=== PATIENT | male | born 1965 | race Caucasian/White ===

== ENCOUNTER → 2018-12-14 | Outpatient (CLI) | payer OTHER | END | disposition home or self-care (01) | LOC: LAB EV 17:31 → LAB SHORT 17:31 | DX: R33.9 Retention of urine, unspecified (principal) | CPT/HCPCS: 87086 ==

== ENCOUNTER 2019-01-01 13:24 | Observation (INO) | payer OTHER ==
[~2019-01-01] VITALS: Ht 170.2 cm; Wt 137.4 kg
[2019-01-01 15:16] LABS: BASOPHILS ABSOLUTE AUTO 0.05 K/mm3 (0.00-0.23); BASOPHILS PERCENT AUTO 1 % (0-2); EOSINOPHILS ABSOLUTE AUTO 0.27 K/mm3 (0.00-0.68); EOSINOPHILS PERCENT AUTO 4 % (0-6); Hematocrit 45.5 % (37.0-53.0); Hemoglobin 14.9 g/dL (13.5-17.5); IMMATURE GRAN ABSOLUTE AUTO 0.01 K/mm3 (0.00-0.10); IMMATURE GRAN PERCENT AUTO 0 % (0-1); LYMPHOCYTES ABSOLUTE AUTO 2.21 K/mm3 (0.84-5.20); LYMPHOCYTES PERCENT AUTO 29 % (21-46); MONOCYTES ABSOLUTE AUTO 0.61 K/mm3 (0.16-1.47); MONOCYTES PERCENT AUTO 8 % (4-13); Mean Corpuscular HGB 29.5 pg (26.0-34.0); Mean Corpuscular HGB Conc 32.7 g/dL (31.5-36.5); Mean Platelet Volume 11.4 fL (9.1-12.4); NEUTROPHILS ABSOLUTE AUTO 4.42 K/mm3 (1.96-9.15); NEUTROPHILS PERCENT AUTO 58 % (41-73); Platelet Count 172 K/mm3 (150-400); RDW Coefficient Variation 13.1 % (11.7-14.2); RDW Standard Deviation 43.3 fL (35.1-46.3); Red Blood Cell Count 5.05 M/mm3 (4.30-5.90); White Blood Cell Count 7.57 K/mm3 (4.00-11.30)
[2019-01-01 15:24] LABS: Mean Corpuscular Volume 90 fL (80-100)
[2019-01-01 15:45] LABS: Alanine Aminotransfer (ALT/SGP 43 U/L (12-78); Albumin, Blood 3.7 g/dL (3.4-5.0); Albumin/Globulin Ratio 1.1 (0.8-1.8); Alk Phos 77 U/L (50-136); Anion Gap 5 mmol/L (6-16); Aspartate Aminotrans (AST/SGOT 29 U/L (12-37); Blood Urea Nitrogen 6 mg/dL (8-24); Bun/Creatinine Ratio 6.8 (12.0-20.0); CO2, Blood 30 mmol/L (21-32); Calcium, Blood 8.6 mg/dL (8.5-10.1); Chloride, Blood 108 mmol/L (98-108); Creatinine, Blood 0.88 mg/dL (0.60-1.20); Globulin, Blood 3.5 g/dL (2.2-4.0); Glomerular Filtration Rate >60 (60-); Glucose, Blood 97 mg/dL (70-99); Potassium, Blood 3.4 mmol/L (3.5-5.5); Sodium, Blood 143 mmol/L (136-145); Total Protein, Blood 7.2 g/dL (6.4-8.2); Troponin I <0.015 ng/mL (0.000-0.040)
[2019-01-01] MEDS ORDERED: HYDPAM50 PO (17:06)
[2019-01-01] MEDS ORDERED: SERT50 PO (17:08)
[2019-01-01] MEDS ORDERED: FISH OIL 1,0001 EAC1 PO (19:51)
[2019-01-02 04:14] LABS: Hematocrit 43.2 % (37.0-53.0); Hemoglobin 14.1 g/dL (13.5-17.5); Mean Corpuscular HGB 29.7 pg (26.0-34.0); Mean Corpuscular HGB Conc 32.6 g/dL (31.5-36.5); Mean Corpuscular Volume 91 fL (80-100); Mean Platelet Volume 11.3 fL (9.1-12.4); Platelet Count 149 K/mm3 (150-400); RDW Standard Deviation 43.4 fL (35.1-46.3); Red Blood Cell Count 4.75 M/mm3 (4.30-5.90); White Blood Cell Count 6.33 K/mm3 (4.00-11.30)
[2019-01-02 04:35] LABS: Anion Gap 7 mmol/L (6-16); Blood Urea Nitrogen 8 mg/dL (8-24); Bun/Creatinine Ratio 9.1 (12.0-20.0); CO2, Blood 27 mmol/L (21-32); Calcium, Blood 8.4 mg/dL (8.5-10.1); Chloride, Blood 110 mmol/L (98-108); Creatinine, Blood 0.88 mg/dL (0.60-1.20); Glomerular Filtration Rate >60 (60-); Glucose, Blood 95 mg/dL (70-99); Potassium, Blood 3.8 mmol/L (3.5-5.5); Sodium, Blood 144 mmol/L (136-145); Troponin I <0.015 ng/mL (0.000-0.040)
--- NOTE | 2019-01-02 07:53 | NUR ---
SHIFT SUMMARY PT ALERT AND ORIENTED X 3 THROUGHOUT SHIFT. HE SLEPT WELL AND DENIED ANY COMPLAINTS OF PAIN OR DISCOMFORT SHIFT PROGRESSED. PT WOKE EASILY FOR VITALS AND ASSESSMENTS. HE HAS REMAINED IN AFIB, BUT AT A LOWER RATE. HE STILL GETS TO 130'S TO 140'S WITH AMBULATION. PT IS ABLE TO EFFECTIVELY COMMUNICATE WITH STAFF AND DENIED ANY UNMET NEEDS. HIS BLOOD PRESSURE WAS ELEVATED LAST NIGHT AND HAS BEEN STARTED ON NEW MEDICATION TO AID THIS. PT STATED THAT HE HAS NO PREVIOUS HISTORY OF AFIB AND DOES NOT TAKE ANY MEDICATION AT HOME CURRENTLY. HE HAS A STEADY AND WELL BALANCED GAIT. PT WILL CONTINUE TO BE MONITORED UNTIL HANDOFF TO DAYSHIFT RN
--- NOTE | 2019-01-02 07:54 | NUR ---
Assumed Care: Assumed care of pt at approx 0700. VSS. In no apparent sign of distress. Pt is A&Ox4. Calls appropriately. Repositions self. Independent in room, and requests assistance appropriately. Denies any pain. C/o more recent hx of numbness to BLE when pt noticed increased swelling to BLE. Pt also reports intermittent flow of urine when he is attempting to urinate, but denies any pain with urination. Urine appears to be of normal color and does not have a foul odor. Pt reports feeling of flutter feeling in chest for short periods of time this admission and in the past, but that this feeling goes away quickly and that the pt has not experienced any CP. See shift assessment for detailed assessment. Currently resting in bed with call light within reach. Denies any further questions, complaints or requests at this time. Will continue to monitor.
--- NOTE | 2019-01-02 16:31 | NUR ---
Shift Summary No acute changes since initial shift assessment. VSS. In no apparent sign of distress. Pt is A&Ox4. Calls appropriately. Repositions self. Denies any pain. Denies any CP. HR improved to 90's-110's after 12.5mg dose of oral metoprolol this AM. No other acute complaints or events t/o the shift noted or reported by pt. Pt has remained on RA t/o the shift and has been independent in the room. Pt currently resting in bed with call light within reach. Denies any further questions, complaints or requests at this time. Will continue to monitor until report is given to juan m SIMPSON.
--- NOTE | 2019-01-03 06:30 | NUR ---
SHIFT SUMMARY PATIENT ALERT AND ORIENTED X 3 THROUGHOUT SHIFT. HE WAS PLEASANT AND COOPERATIVE WITH VITALS AND ASSESSMENTS. PT DENIED ANY UNMET NEEDS OR COMLAINTS OF PAIN OR DISCOMFORT. HE STATED THAT HE STILL HAD THE OCCASIONAL FLUTTERING FEELING IN HIS CHEST, BUT THAT IT WAS BETTER. HE SLEPT WELL DURING THE NIGHT, REMAINING INDPENDENT IN THE ROOM. PT WAS ABLETO COMMUNICATE NEEDS EFFECTIVELY WITH STAFF. HE USED HIS CALL LIGHT APPROPRIAELY AND IT WAS LEFT WTIHIN EASY REACH. HEART RATE AND BLOOD PRESSURE IMPROVED DURING THE NIGHT, THOUGH HE REMAINED IN AFIB. PT HAS HIS BED IN THE LOWEST POSITION WITH 2X SIDE RAILS IN PLACE. HE HAS NON SLIP SOCKS ON FOR SAFETY. PT WILL CONTINUE TO BE MONITORED UNTIL HANDOFF TO DAYSHIFT RN.
--- NOTE | 2019-01-03 09:08 | NUR ---
Assumed Care: Assumed care of pt at approx 0700. VSS - HTN and tacycardic - Dr. Ledesma at bedside and plan is to increase PO dose of metoprolol to 50mg BID. Pt denies any CP or pressure. Plan is to increase PO dose of metoprolol and if HR improves to appropriate rate, will ambulate pt today in halls to test activity tolerance w/regards to HR. See shift assessment for detailed assessment. Pt independent in room and pt has already been up in room this AM. Currently resting in bed with call light within reach. States that the n/t to his BLE improved as the swelling has decreased in his legs. Reports that his urinary status has returned to normal this AM as well. Denies any further questions, complaints or requests at this time. Will continue to eleonora.
--- NOTE | 2019-01-03 15:54 | NUR ---
Shift Summary No acute changes since initial shift assessment. VSS. In no apparent sign of distress. Pt has remained A&Ox4. This afternoon, pt ambulated in halls with prior resting HR in the 90's-low 100's and increased HR with activity of 150's. Pt c/o pressure or flutter feeling in chest with ambulation. Once back in bed, HR returned to the 90's-low 100's within [address] Ledesma at bedside post ambulation and plan is to start pt on oral/scheduled cardizem tonight and monitor overnight and likely DC tomorrow if HR remaines stable with activity. Pt has remained on RA. Denies any SOB at rest and mild SOB with activity. No other acute events on tele. Pt currently resting in bed with call light within reach. Denies any further questions, complaints or requests at this time. Will continue to montior until report is given to juan m SIMPSON or until pt transfers to medical floor if bed becomes available.
--- NOTE | 2019-01-03 22:37 | NUR ---
PATIENT TRANSFER ASSUMED CARE OF PT AT APPROXIMATELY 1900 THIS EVENING. PT IS CURRENTLY AOX4 AND AMBULATES INDEPENDENTLY IN THE ROOM. CURRENT HEART RHYTHM IS ATRIAL FIBRILLATION WITH A RATE IN THE 90'S PER MONITOR. ALL OTHER VSS. PT IS VERY PLEASANT AND COOPERATIVE WITH CARE. LUNG SOUNDS CLEAR. PT DENIES DYSPNEA SINCE HEART RATE MORE CONTROLLED. PT REPORTS SOME CONCERN ABOUT DISCHARGE TIME TOMORROW, STATES THAT HE MUST BE OUT EARLY IN THE DAY- ADMITTING PHYSICIAN IS AWARE OF PATIENT CONCERNS. PT EDUCATED ON NEW RATE CONTROL MEDICATIONS AND ANTICOAGULANT THERAPY. REPORT CALLED TO NURSE DEL TO BE TAKING OVER CARE OF PATIENT.
--- NOTE | 2019-01-04 05:06 | NUR ---
SHIFT SUMMARY PT TRANSFERED FROM PCU 14 THIS EVENING. REPORTS FEELING WELL. TELEMETRY ON, READING AFIB IN THE 90'S. RATE CONTROLLED THROUGHOUT THE NIGHT. DENIES DYSPNEA OR CHEST PAIN BUT REPORTS HE HAD SOME CHEST DISCOMFORT PRIOR AFTER NEW CARDIAC MEDICATIONS. PER REPORT PT'S HEART RATE INCREASES W/ AMBULATION, HOWEVER PT SLEPT THROUGH MOST OF THE NIGHT AFTER TRANSFER. PT A.O. INDEPENDENT IN THE ROOM. NO ACUTE CHANGES OVERNIGHT. PLAN TO D/C EARLY THIS AM. WILL CONTINUE TO MONITOR.
[2019-01-04] MEDS ORDERED: DILTIAZEM 24HR240 M1 PO (09:34)
[2019-01-04] MEDS ORDERED: METO50ER PO (09:35)
[2019-01-04] MEDS ORDERED: XARELTO20 MG PO (09:37)
--- NOTE | 2019-01-04 12:20 | NUR ---
REVIEW DC. JOSE J HAS MEDS AT PHARM. JOSE J HAS APPT W/ ON FRIDAY AT 0945. REVIEW MEDS WHAT FOR AND HOW TO TAKE. JOSE J CAN RETRUN TO E.R. IF NEEDED. IN W/C WITH STUDENT TO ADMITTING FOR [facility] TO [facility].
== END 2019-01-04 12:18 | disposition home or self-care (01) ==
LOC: ER 13:24 → MEDS 13:25 → PCU 13:25 → ER 16:26 → PCU 16:26 → MEDS 19:49 → PCU 01-03 15:30 → MEDS 01-03 22:50
PROVIDERS: Internal Medicine; ADMIT Internal Medicine
DX: I48.91 Unspecified atrial fibrillation (principal); N40.0 Benign prostatic hyperplasia without lower urinary tract symptoms; G47.33 Obstructive sleep apnea (adult) (pediatric); E66.01 Morbid (severe) obesity due to excess calories; I10 Essential (primary) hypertension; Z87.891 Personal history of nicotine dependence; Z88.2 Allergy status to sulfonamides; Z88.1 Allergy status to other antibiotic agents; Z88.8 Allergy status to other drugs, medicaments and biological substances; Z68.42 Body mass index [BMI] 45.0-49.9, adult
CPT/HCPCS: 36415; 71046; 80048; 80053; 83880; 84484; 85025; 85027; 93005; 93010; 93306; 96365; 99285-25; G0378; J7030

== ENCOUNTER → 2019-01-01 | Outpatient (CLI) | payer OTHER ==
[~2019-01-01] MED LIST: DILTIAZEM 24HR240 M1 PO; FISH OIL 1,0001 EAC1 PO; HYDPAM50 PO; METO50ER PO; SERT50 PO; XARELTO20 MG PO
[2019-01-01 13:02] LABS: BASOPHILS ABSOLUTE AUTO 0.03 K/mm3 (0.00-0.23); BASOPHILS PERCENT AUTO 1 % (0-2); EOSINOPHILS ABSOLUTE AUTO 0.24 K/mm3 (0.00-0.68); EOSINOPHILS PERCENT AUTO 4 % (0-6); Hematocrit 44.5 % (37.0-53.0); Hemoglobin 15.3 g/dL (13.5-17.5); IMMATURE GRAN ABSOLUTE AUTO 0.01 K/mm3 (0.00-0.10); IMMATURE GRAN PERCENT AUTO 0 % (0-1); LYMPHOCYTES ABSOLUTE AUTO 1.82 K/mm3 (0.84-5.20); LYMPHOCYTES PERCENT AUTO 29 % (21-46); MONOCYTES ABSOLUTE AUTO 0.47 K/mm3 (0.16-1.47); MONOCYTES PERCENT AUTO 7 % (4-13); Mean Corpuscular HGB Conc 34.4 g/dL (31.5-36.5); Mean Corpuscular Volume 87 fL (80-100); Mean Platelet Volume 11.3 fL (9.1-12.4); NEUTROPHILS ABSOLUTE AUTO 3.81 K/mm3 (1.96-9.15); NEUTROPHILS PERCENT AUTO 60 % (41-73); Platelet Count 160 K/mm3 (150-400); RDW Coefficient Variation 13.2 % (11.7-14.2); RDW Standard Deviation 42.1 fL (35.1-46.3); White Blood Cell Count 6.38 K/mm3 (4.00-11.30)
[2019-01-01 13:21] LABS: Alanine Aminotransfer (ALT/SGP 50 U/L (12-78); Albumin, Blood 3.9 g/dL (3.4-5.0); Albumin/Globulin Ratio 1.1 (0.8-1.8); Alk Phos 80 U/L (40-126); Anion Gap 10 mmol/L (6-16); Aspartate Aminotrans (AST/SGOT 35 U/L (12-37); Blood Urea Nitrogen 9 mg/dL (8-24); Bun/Creatinine Ratio 8.8 (12.0-20.0); CO2, Blood 29 mmol/L (21-32); CPK Creatine Kinase 147 U/L (39-308); Calcium, Blood 8.6 mg/dL (8.5-10.1); Chloride, Blood 103 mmol/L (98-108); Creatinine, Blood 1.02 mg/dL (0.60-1.20); Free Thyroxine 1.15 ng/dL (0.70-1.60); Globulin, Blood 3.7 g/dL (2.2-4.0); Glomerular Filtration Rate >60 (60-); Glucose, Blood 95 mg/dL (70-99); Potassium, Blood 3.3 mmol/L (3.5-5.5); Sodium, Blood 142 mmol/L (136-145); Thyroid Stimulating Hormone 1.744 uIU/mL (0.360-4.800); Total Protein, Blood 7.6 g/dL (6.4-8.2)
[2019-01-01 13:23] LABS: Troponin I <0.017 ng/mL (0.000-0.040)
[2019-01-01 13:54] LABS: International Normalized Ratio 1.04
== END | disposition home or self-care (01) ==
LOC: LAB SHORT 12:54 → LAB EV 12:54
PROVIDERS: General Practice
DX: R00.0 Tachycardia, unspecified (principal)
CPT/HCPCS: 80053; 82550; 84439; 84443; 84484; 85025; 85379; 85610; 85730